=== PATIENT | male | born 1960 ===

== ENCOUNTER 2017-03-21 09:41 | Inpatient (IN) | payer OTHER ==
[2017-03-21 11:04] VITALS: BMI 24.1
--- NOTE | 2017-03-21 12:56 | HP ---
CIWA Score - CIWA Score Nausea/Vomitin-Mild Nausea/No Vomiting Muscle Tremors: 3 Anxiety: 4-Mod. Anxious/Guarded Agitation: 4-Moderately Restless Paroxysmal Sweats: 1-Minimal Palms Moist Orientation: 0-Oriented Tacttile Disturbances: 3-Moderate Itch/Numb/Burn Auditory Disturbances: 0-None Visual Disturbances: 0-None Headache: 0-None Present CIWA-Ar Total Score: 16 Admission ROS BHS - HPI Chief Complaint: DETOX TX FOR ALCOHOL DEPENDENCE Allergies/Adverse Reactions: Allergies Allergy/AdvReac Type Severity Reaction Status Date / Time No Known Allergies Allergy Verified 03/21/17 11:41 History of Present Illness: 56 Y/O AA/MALE WITH A HX OF ALCOHOL AND MARIJUANA DEPENDENCE SEEKING DETOX TX Exam Limitations: No Limitations - Ebola screening Have you traveled outside of the country in the last 21 days: No Have you had contact with anyone from an Ebola affected area: No Have you been sick,other than usual withdrawal symptoms: No - Review of Systems Constitutional: Chills, Loss of Appetite, Night Sweats, Changes in sleep EENT: reports: Nose Congestion, Dental Problems (CRACKED FRONTAL TOOTH) Respiratory: reports: No Symptoms reported Cardiac: reports: Lightheadedness GI: reports: Diarrhea, Nausea, Poor Appetite, Poor Fluid Intake, Vomiting : reports: Frequency (NOCTURIA) Musculoskeletal: reports: Back Pain, Joint Pain, Muscle Pain Integumentary: reports: No Symptoms Reported Neuro: reports: Headache, Tremors, Unsteady Gait, Dizziness Endocrine: reports: No Symptoms Reported Hematology: reports: No Symptoms Reported Psychiatric: reports: Orientated x3, Anxious, Depressed Other Systems: Reviewed and Negative Patient History - Patient Medical History Hx Anemia: No Hx Asthma: No Hx Chronic Obstructive Pulmonary Disease (COPD): No Hx Cardiac Disorders: No Hx Hypertension: No Hx Hypercholesterolemia: No HX Cerebrovascular Accident: No Hx Seizures: No Hx Diabetes: No Hx Gastrointestinal Disorders: No Hx Genitourinary Disorders: No Hx Sexually Transmitted Disorders: No Hx Renal Disease (ESRD): No Hx Thyroid Disease: No Hx Human Immunodeficiency Virus (HIV): No (NEGATIVE HX) Hx Hepatitis C: No Hx Depression: Yes (AND ANXIETY) Hx Suicide Attempt: No (DENIES) Hx Schizophrenia: Yes (ON HALDOL) - Patient Surgical History Past Surgical History: No Hx Neurologic Surgery: No Hx Cataract Extraction: No Hx Cardiac Surgery: No Hx Lung Surgery: No Hx Breast Surgery: No Hx Breast Biopsy: No Hx Abdominal Surgery: No Hx Appendectomy: No Hx Cholecystectomy: No Hx Genitourinary Surgery: No Hx Orthopedic Surgery: No Anesthesia Reaction: No - PPD History Previous Implant?: Yes Documented Results: Negative w/o proof Implanted On Prior [facility] Admission?: No PPD to be Administered?: Yes - Reproductive History Patient is a Female of Child Bearing Age (11 -55 yrs old): No (MALE) - Smoking Cessation Smoking history: Current every day smoker Have you smoked in the past 12 months: Yes Aproximately how many cigarettes per day: 10 Hx Chewing Tobacco Use: No Initiated information on smoking cessation: Yes 'Breaking Loose' booklet given: 03/21/17 - Substance & Tx. History Hx Alcohol Use: Yes (KAYLEN) Hx Substance Use: (MARIJUANA) Substance Use Type: Alcohol, Marijuana Hx Substance Use Treatment: Yes - Substances Abused Alcohol Route: Oral Frequency: Daily Amount used: kaylen(1 gallon)/vodka(1gallon) Age of first use: 12 Date of Last Use: 03/21/17 Marijuana/Hashish Route: Smoking Frequency: Daily Amount used: $50 Age of first use: 12 Date of Last Use: 03/20/17 Family Disease History - Family Disease History Family Disease History: Other: Mother (HTN-) Admission Physical Exam BHS - Vital Signs Vital Signs: Vital Signs - 24 hr 03/21/17 11:01 Temperature 98.2 F Pulse Rate 99 H Respiratory 20 Rate Blood Pressure 148/60 - Physical General Appearance: Yes: Moderate Distress, Irritable, Anxious HEENTM: Yes: EOMI, Normocephalic, OLEGARIO, Pharynx Normal Respiratory: Yes: Chest Non-Tender, Lungs Clear, Normal Breath Sounds, No Respiratory Distress Neck: Yes: Supple, Trachea in good position Breast: Yes: Breast Exam Deferred Cardiology: Yes: Regular Rhythm, Regular Rate, S1, S2 Abdominal: Yes: Normal Bowel Sounds, Non Tender, Soft Genitourinary: Yes: Other (N/C) Back: Yes: Within Normal Limits Musculoskeletal: Yes: full range of Motion, Gait Steady Extremities: Yes: Normal Range of Motion, Non-Tender, Tremors Neurological: Yes: supervisor composing room II-XII NML intact, Fully Oriented, Alert, Motor Strength 5/5 Integumentary: Yes: Dry, Warm Lymphatic: Yes: Within Normal Limits - Diagnostic (1) Alcohol dependence with uncomplicated withdrawal Current Visit: Yes Status: Acute (2) Cannabis dependence, uncomplicated Current Visit: Yes Status: Acute Cleared for Admission [facility] - Detox or Rehab [facility] Level of Care: Medically Managed Detox Regimen/Protocol: Librium S Breath Alcohol Content Breath Alcohol Content: 0 Urine Drug Screen - Results Drug Screen Negative: No Urine Drug Screen Results: THC-Marijuana
[2017-03-21] MEDS ORDERED: guaiFENesin/D-METHORPHAN HB 10 ML UNIT-DOSE CUPS PO PRN (13:06)
[2017-03-21] MEDS ORDERED: hydrOXYzine PAMOATE 25 MG CAPSULE (FP) PO PRN (13:06)
[2017-03-21] MEDS ORDERED: MAGNESIUM CITRATE 300 ML BOTTLE PO PRN (13:06)
[2017-03-21] MEDS ORDERED: LOPERAMIDE HCL 2 MG CAPSULE PO PRN (13:06)
[2017-03-21] MEDS ORDERED: P-EPHED 60MG/TRIPROLIDI 2.5MG TABLET PO PRN (13:06)
[2017-03-21] MEDS ORDERED: MENTHOL/PHENOL 1 EACH UD MM PRN (13:06)
[2017-03-21] MEDS ORDERED: MAGNESIUM HYDROX 2400MG/30ML ORAL SUSPENSION 30 ML CUP PO PRN (13:06)
[2017-03-21] MEDS ORDERED: NICOTINE POLACRILEX 2 MG GUM BUC PRN (13:06)
[2017-03-21] MEDS ORDERED: ACETAMINOPHEN 325 MG TABLET (FP) PO PRN (13:06)
[2017-03-21] MEDS ORDERED: chlordiazePOXIDE HCL 25 MG CAPSULE PO PRN (13:06)
[2017-03-21] MEDS ORDERED: chlordiazePOXIDE HCL 25 MG CAPSULE PO ONE (13:51)
[2017-03-21] MEDS: NICOTINE 14 MG/24 HOURS TOPICAL PATCH TD SCH (15:01)
--- NOTE | 2017-03-21 16:26 | CONSULT ---
[facility] Psychiatric Consult - Data Date of interview: 03/21/17 Admission source: [facility] Identifying data: First admission to [facility] for this 56 y/o AA male seeking detox treatment for alcohol and marijuana dependence.Patient is single,a father of 10,homeless,unemployed and living on his Social Security benefits. Substance Abuse History: - Smoking Cessation. Smoking history: Current every day smoker. Have you smoked in the past 12 months: Yes. Aproximately how many cigarettes per day: 10. Hx Chewing Tobacco Use: No. Initiated information on smoking cessation: Yes. 'Breaking Loose' booklet given: 03/21/17. - Substance & Tx. History. Hx Alcohol Use: Yes (KAYLEN). Hx Substance Use: (MARIJUANA) . Substance Use Type: Alcohol, Marijuana. Hx Substance Use Treatment: Yes. - Substances Abused. Alcohol. Route: Oral. Frequency: Daily. Amount used: kaylen(1 gallon)/vodka(1gallon). Age of first use: 12. Date of Last Use: . Marijuana/Hashish. Route: Smoking. Frequency: Daily. Amount used : $50. Age of first use: 12. Date of Last Use: 03/20/17. Confirmed by patient. Medical History: Patient endorses good general health. Psychiatric History: Patient admits to a remote history of psychiatric hospitalizations.Known to [facility] in [facility].Diagnosed with Schizophrenia,paranoid type.Prescribed haldol 5 mg/day.No Psychiatric [facility] care providers.Mr Cruz informs that he does not keep his clinic appointments.It appears that he manages to get medications from sporadic admissions to detox/ rehab units and occasional visits to local emergency room settings.Patient denies history of suicide attempts. Physical/Sexual Abuse/Trauma History: Patient denies. Additional Comment: Urine Drug Screen Results: THC-Marijuana.Noted. Mental Status Exam - Mental Status Exam Alert and Oriented to: Time, Place, Person Cognitive Function: Good Patient Appearance: Well Groomed Mood: Nervous, Anxious, Apprehensive Affect: Mood Congruent, Blunted Patient Behavior: Fatigued, Cooperative Speech Pattern: Clear Voice Loudness: Normal Thought Process: Goal Oriented Thought Disorder: Not Present Hallucinations: Denies Suicidal Ideation: Denies Homicidal Ideation: Denies Insight/Judgement: Poor Sleep: Fair Appetite: Good Muscle strength/Tone: Normal Gait/Station: Normal Psychiatric Findings - Problem List ([place] 1, 2,3) (1) Alcohol dependence with uncomplicated withdrawal Current Visit: Yes Status: Acute (2) Cannabis dependence, uncomplicated Current Visit: Yes Status: Acute (3) Nicotine dependence Current Visit: Yes Status: Acute (4) Schizophrenia, paranoid type Current Visit: Yes Status: Chronic - Initial Treatment Plan Initial Treatment Plan: Psychoeducation provided in this session.Detoxification is in progress.Medications : haldol 5 mg po hs + cogentin 1 mg po hs.Side effects/benefits discussed with patient.Made aware of potential for EPS ( dystonias,dyskinesias,akathisia,akinesia),neuroleptic malignant syndrome (NMS) and cardiac adverse events from utilization of haloperidol,anticholinergic complications (dry mouth,constipation,blurred vision,urinary hesitancy, aggravation of narrow angle glaucoma) from the use of cogentin.Mr Cruz insists that he has taken these two drugs,for years,without any problems.Eager to resume his medications.He states that he took them four days ago.Observation.
[2017-03-21] MEDS: chlordiazePOXIDE HCL 25 MG CAPSULE PO SCH ×2 (17:28→22:13)
[2017-03-21 19:18] LABS: URINE APPEARANCE SLCLOUDY; URINE BILIRUBIN NEGATIVE (NEGATIVE); URINE BLOOD NEGATIVE (NEGATIVE); URINE COLOR YELLOW; URINE GLUCOSE (UA) NEGATIVE (NEGATIVE); URINE KETONE NEGATIVE (NEGATIVE); URINE NITRITE NEGATIVE (NEGATIVE); URINE PROTEIN NEGATIVE (NEGATIVE); URINE UROBILINOGEN NEGATIVE E.U./dl (0.2-1.0)
[2017-03-21 19:20] LABS: URINE LEUK ESTERASE 3+ (NEGATIVE)
[2017-03-21] MEDS: THIAMINE HCL 100 MG TABLET (FP) PO SCH (22:13)
[2017-03-21] MEDS: HALOPERIDOL 5 MG TABLET (FP) PO SCH (22:13)
[2017-03-21] MEDS: BENZTROPINE MESYLATE 1 MG TABLET (FP) PO SCH (22:13)
[2017-03-21] MEDS: diphenhydrAMINE HCL 50 MG CAPSULE PO PRN (22:14)
[2017-03-21] MEDS: MAG HYDROX/AL HYDROX/SIMETH 30 ML UNIT-DOSE CUP PO PRN (23:40)
[2017-03-22] MEDS: chlordiazePOXIDE HCL 25 MG CAPSULE PO SCH ×4 (05:26→22:18)
[2017-03-22 09:46] LABS: MCH 33.2 pg (25.7-33.7); MCHC 33.3 g/dl (32.0-35.9); MEAN CELL VOLUME 99.7 fl (80-96); MEAN PLT VOLUME 9.6 fl (7.5-11.1); PLATELET COUNT 222 K/MM3 (134-434); RDW 16.4 % (11.9-15.9); WHITE BLOOD COUNT 10.6 K/mm3 (4.0-10.0)
[2017-03-22 10:36] LABS: ALBUMIN 4.4 g/dl (3.4-5.0); ALK PHOS 136 U/L (45-117); ANION GAP 9 (8-16); BILIRUBIN,TOTAL 0.8 mg/dL (0.2-1.0); CALCIUM 9.6 mg/dL (8.5-10.1); CO2 33 mmol/L (21-32); COCKROFT - GAULT 91.74; CREATININE 1.1 mg/dL (0.7-1.3); GLUCOSE,RANDOM 111 mg/dL (74-106); SGOT/AST 42 U/L (15-37); SGPT/ALT 41 U/L (12-78); TOT PROT 8.4 g/dl (6.4-8.2)
[2017-03-22] MEDS: PRENATAL VITAMINS W/ FOLIC ACID TABLET (FP) PO SCH (10:55)
[2017-03-22] MEDS: NICOTINE 14 MG/24 HOURS TOPICAL PATCH TD SCH (11:09)
--- NOTE | 2017-03-22 11:22 | EKG ---
Test Reason : Blood Pressure : / mmHG Vent. Rate : 085 BPM Atrial Rate : 085 BPM P-R Int : 130 ms QRS Dur : 082 ms QT Int : 362 ms P-R-T Axes : 072 030 054 degrees QTc Int : 430 ms NORMAL SINUS RHYTHM POSSIBLE LEFT ATRIAL ENLARGEMENT POOR R WAVE PROGRESSION ABNORMAL ECG NO PREVIOUS ECGS AVAILABLE Confirmed by CRISTIAN GOOD, IAN ([id number]) on 03/22/2017 11:22:11 AM Referred By: Confirmed By:IAN FOSTER MD
--- NOTE | 2017-03-22 11:57 | PN ---
[facility] CIWA - CIWA Score Nausea/Vomitin-No Nausea/No Vomiting Muscle Tremors: 3 Anxiety: 2 Agitation: 3 Paroxysmal Sweats: 3 Orientation: 0-Oriented Tacttile Disturbances: 0-None Auditory Disturbances: 0-None Visual Disturbances: 0-None Headache: 0-None Present CIWA-Ar Total Score: 11 [facility] Progress Note (SOAP) Subjective: irritable agitation tired sweats Objective: 03/22/17 11:57 Vital Signs Temperature 96.4 F L 03/22/17 11:03 Pulse Rate 96 H 03/22/17 11:03 Respiratory Rate 20 03/22/17 11:03 Blood Pressure 115/61 03/22/17 11:03 O2 Sat by Pulse Oximetry (%) Laboratory Tests 03/21/17 03/22/17 03/22/17 15:00 06:00 06:00 WBC 10.6 H RBC 4.31 Hgb 14.3 Hct 42.9 MCV 99.7 H MCHC 33.3 RDW 16.4 H Plt Count 222 MPV 9.6 Sodium 141 Potassium 3.5 Chloride 99 Carbon Dioxide 33 H Anion Gap 9 BUN 6 L Creatinine 1.1 Creat Clearance w eGFR > 60 Random Glucose 111 H Calcium 9.6 Total Bilirubin 0.8 AST 42 H ALT 41 Alkaline Phosphatase 136 H Total Protein 8.4 H Albumin 4.4 Urine Color Yellow Urine Appearance Slcloudy Urine pH 7.0 Ur Specific [place] 1.015 Urine Protein Negative Urine Glucose (UA) Negative Urine Ketones Negative Urine Blood Negative Urine Nitrite Negative Urine Bilirubin Negative Urine Urobilinogen Negative Ur Leukocyte Esterase 3+ H RPR Titer 03/22/17 06:00 WBC RBC Hgb Hct MCV MCHC RDW Plt Count MPV Sodium Potassium Chloride Carbon Dioxide Anion Gap BUN Creatinine Creat Clearance w eGFR Random Glucose Calcium Total Bilirubin AST ALT Alkaline Phosphatase Total Protein Albumin Urine Color Urine Appearance Urine pH Ur Specific [place] Urine Protein Urine Glucose (UA) Urine Ketones Urine Blood Urine Nitrite Urine Bilirubin Urine Urobilinogen Ur Leukocyte Esterase RPR Titer Nonreactive awake/alert ambulating no acute distress Assessment: 03/22/17 11:57 withdrawal sx Plan: continue detox increase fluids
[2017-03-22 14:47] LABS: URINE RBC 2 /hpf (0-3); URINE WBC 67 (3-5)
[2017-03-22 14:48] LABS: URINE BACTERIA RARE /hpf (NEGATIVE); URINE MUCUS RARE
[2017-03-22] MEDS: IBUPROFEN 400 MG TABLET (FP) PO PRN (19:55)
[2017-03-22] MEDS: BENZTROPINE MESYLATE 1 MG TABLET (FP) PO SCH (22:17)
[2017-03-22] MEDS: THIAMINE HCL 100 MG TABLET (FP) PO SCH (22:17)
[2017-03-22] MEDS: HALOPERIDOL 5 MG TABLET (FP) PO SCH (22:17)
[2017-03-22] MEDS: diphenhydrAMINE HCL 50 MG CAPSULE PO PRN (22:18)
[2017-03-23 06:14] LABS: SICKLE CELL SCREEN POSITIVE (NEGATIVE)
[2017-03-23] MEDS: chlordiazePOXIDE HCL 25 MG CAPSULE PO SCH ×2 (06:21→10:55)
[2017-03-23] MEDS: IBUPROFEN 400 MG TABLET (FP) PO PRN (06:55)
[2017-03-23] MEDS ORDERED: CYCLOBENZAPRINE HCL 10 MG TABLET (FP) PO PRN (10:02)
--- NOTE | 2017-03-23 10:09 | PN ---
S CIWA - CIWA Score Nausea/Vomitin Muscle Tremors: 2 Anxiety: 2 Agitation: 3 Paroxysmal Sweats: 3 Orientation: 0-Oriented Tacttile Disturbances: 1-Very Mild Itch/Numbness Auditory Disturbances: 0-None Visual Disturbances: 0-None Headache: 0-None Present CIWA-Ar Total Score: 13 [facility] Progress Note (SOAP) Subjective: feels better , but interrupted sleep, sweats, lbp spasm Objective: 03/23/17 10:07 Vital Signs Temperature 98.1 F 03/22/17 22:19 Pulse Rate 76 03/23/17 06:00 Respiratory Rate 18 03/23/17 06:00 Blood Pressure 145/77 03/23/17 06:00 O2 Sat by Pulse Oximetry (%) Laboratory Tests 03/21/17 03/22/17 03/22/17 15:00 06:00 06:00 WBC 10.6 H RBC 4.31 Hgb 14.3 Hct 42.9 MCV 99.7 H MCHC 33.3 RDW 16.4 H Plt Count 222 MPV 9.6 Sickle Cell Screen Positive Sodium 141 Potassium 3.5 Chloride 99 Carbon Dioxide 33 H Anion Gap 9 BUN 6 L Creatinine 1.1 Creat Clearance w eGFR > 60 Random Glucose 111 H Calcium 9.6 Total Bilirubin 0.8 AST 42 H ALT 41 Alkaline Phosphatase 136 H Total Protein 8.4 H Albumin 4.4 Urine Color Yellow Urine Appearance Slcloudy Urine pH 7.0 Ur Specific [place] 1.015 Urine Protein Negative Urine Glucose (UA) Negative Urine Ketones Negative Urine Blood Negative Urine Nitrite Negative Urine Bilirubin Negative Urine Urobilinogen Negative Ur Leukocyte Esterase 3+ H Urine RBC 2 Urine WBC 67 Ur Epithelial Cells Rare Urine Bacteria Rare Urine Mucus Rare RPR Titer 03/22/17 06:00 WBC RBC Hgb Hct MCV MCHC RDW Plt Count MPV Sickle Cell Screen Sodium Potassium Chloride Carbon Dioxide Anion Gap BUN Creatinine Creat Clearance w eGFR Random Glucose Calcium Total Bilirubin AST ALT Alkaline Phosphatase Total Protein Albumin Urine Color Urine Appearance Urine pH Ur Specific [place] Urine Protein Urine Glucose (UA) Urine Ketones Urine Blood Urine Nitrite Urine Bilirubin Urine Urobilinogen Ur Leukocyte Esterase Urine RBC Urine WBC Ur Epithelial Cells Urine Bacteria Urine Mucus RPR Titer Nonreactive pt aox3 in nad ambulating Plan: withdrawal sx's cont. detox increase fluids flexeril 10mg tid/prn
[2017-03-23] MEDS: HALOPERIDOL 5 MG TABLET (FP) PO SCH ×2 (10:56→22:50)
[2017-03-23] MEDS: NICOTINE 14 MG/24 HOURS TOPICAL PATCH TD SCH (10:56)
[2017-03-23] MEDS: MAG HYDROX/AL HYDROX/SIMETH 30 ML UNIT-DOSE CUP PO PRN ×2 (10:56→17:41)
[2017-03-23] MEDS: BENZTROPINE MESYLATE 1 MG TABLET (FP) PO SCH ×2 (10:56→22:50)
[2017-03-23] MEDS: PRENATAL VITAMINS W/ FOLIC ACID TABLET (FP) PO SCH (10:56)
[2017-03-23] MEDS: hydrOXYzine PAMOATE 25 MG CAPSULE (FP) PO PRN (13:12)
[2017-03-23] MEDS: chlordiazePOXIDE 5 MG CAPSULE PO SCH ×2 (16:46→22:50)
[2017-03-23] MEDS: HALOPERIDOL 1 MG TABLET (FP) PO PRN (19:09)
[2017-03-23] MEDS: THIAMINE HCL 100 MG TABLET (FP) PO SCH (22:50)
[2017-03-24] MEDS: hydrOXYzine PAMOATE 25 MG CAPSULE (FP) PO PRN (01:12)
[2017-03-24] MEDS: HALOPERIDOL 1 MG TABLET (FP) PO PRN (01:18)
[2017-03-24] MEDS: MAG HYDROX/AL HYDROX/SIMETH 30 ML UNIT-DOSE CUP PO PRN (04:35)
[2017-03-24] MEDS: chlordiazePOXIDE 5 MG CAPSULE PO SCH (06:03)
[2017-03-24] MEDS: HALOPERIDOL 5 MG TABLET (FP) PO SCH (10:20)
[2017-03-24] MEDS: NICOTINE 14 MG/24 HOURS TOPICAL PATCH TD SCH (10:20)
[2017-03-24] MEDS: BENZTROPINE MESYLATE 1 MG TABLET (FP) PO SCH (10:20)
[2017-03-24] MEDS: PRENATAL VITAMINS W/ FOLIC ACID TABLET (FP) PO SCH (10:20)
[2017-03-24 10:32] VITALS: BP 148/90; PULSE 97; TEMP 97
--- NOTE | 2017-03-24 10:54 | PN ---
S Progress Note Note: pt became irrate disrespectful, calling junior copywriter a Bitch and threatening, security called and pt escorted off the unit. Administrative discharge
[2017-03-24] MEDS ORDERED: chlordiazePOXIDE HCL 10 MG CAPSULE PO SCH (17:00)
[2017-03-26 00:11] LABS: Hgb A2 3.8 % (0.7-3.1)
--- NOTE | 2017-03-29 11:56 | DS ---
[facility] Detox Discharge Summary Admission Date: 03/21/17 - History Present History: Alcohol Dependence, Cannabis Dependence - Physical Exam Results Vital Signs: Vital Signs Temperature 97 F L 03/24/17 10:31 Pulse Rate 97 H 03/24/17 10:31 Respiratory Rate 20 03/24/17 10:31 Blood Pressure 148/90 03/24/17 10:31 O2 Sat by Pulse Oximetry (%) - Treatment Hospital Course: Detox Protocol Followed, Detoxed Safely - Medication Discharge Medications: Ambulatory Orders Benztropine Mesylate [Cogentin -] 1 mg PO DAILY #30 tablet 03/21/17 Haloperidol [Haldol -] 5 mg PO DAILY 03/21/17 Haloperidol [Haldol -] 5 mg PO HS #30 tablet 03/21/17 Benztropine Mesylate [Cogentin -] 1 mg PO BID #60 tablet 03/23/17 Haloperidol [Haldol -] 5 mg PO BID #60 tablet 03/23/17 - AMA Did Patient Leave Against Medical Advice: No (but was d/c'ed for bad behavior on chang)
== END 2017-03-24 10:20 | disposition home or self-care (01) | DRG 775 ==
LOC: YASAS 09:41 → Y6N 13:34
PROVIDERS: ADMIT Internal Medicine Addiction Medicine; ATTEND Internal Medicine Addiction Medicine
PROC: HZ2ZZZZ Detoxification Services for Substance Abuse Treatment (ICD-10-PCS; principal; 2017-03-21)
DX: F10.230 Alcohol dependence with withdrawal, uncomplicated (principal); F12.20 Cannabis dependence, uncomplicated; F17.210 Nicotine dependence, cigarettes, uncomplicated; F20.0 Paranoid schizophrenia; Z91.19 Patient's noncompliance with other medical treatment and regimen
CPT/HCPCS: 36415; 80053; 81003; 81015; 83021; 85027; 85660; 86593; 93005; 93010